=== PATIENT | male | born 1990 | race Caucasian/White ===

== ENCOUNTER 2017-07-20 16:01 | Emergency (ER) | payer SELFPAY ==
[~2017-07-20] VITALS: Ht 182.9 cm; Wt 76.6 kg
[~2017-07-20 16:01] MED LIST: AUGMENTIN875 MG PO; PEN-VEE K,VEET500 MG PO; ULTRAM50 MG PO
[2017-07-20] MEDS ORDERED: MOTRIN800 MG PO (18:30)
[2017-07-20 18:49] VITALS: BP 137/94
== END 2017-07-20 18:51 | disposition home or self-care (01) ==
LOC: EME 16:01
DX: S83.92XA Sprain of unspecified site of left knee, initial encounter (principal); X50.1XXA Overexertion from prolonged static or awkward postures, initial encounter; Y93.H9 Activity, other involving exterior property and land maintenance, building and construction; Y92.007 Garden or yard of unspecified non-institutional (private) residence as the place of occurrence of the external cause
CPT/HCPCS: 73564; 99281; 99283